=== PATIENT | female | born 1980 | race Caucasian/White ===

== ENCOUNTER → 2022-10-14 09:56 | Outpatient (BNVA) | payer OTHER, SELFPAY | PROVIDERS: PCP Internal Medicine; Visit Provider Nurse Practitioner Family ==

== ENCOUNTER → 2022-10-18 15:04 | Outpatient (BNVA) | payer OTHER, SELFPAY | PROVIDERS: PCP Internal Medicine; Visit Provider Nurse Practitioner Family ==

== ENCOUNTER 2023-02-18 07:56 | Outpatient (AMB) | payer OTHER, SELFPAY ==
--- NOTE | 2023-02-18 07:59 | A.OFFVIS_ITS ---
Intake Vital Signs 02/18/23 08:00 Height 5 ft 3 in Weight 164 lb BMI 29.0 BP 118/72 Blood Pressure Location Rt brachial Position Sitting Pulse 95 Pulse Source Pulse Oximeter Pulse Oximetry (%) 99 Oxygen Delivery Method Room Air Intake Visit Reasons: 4m follow up MIGRAINE-lvm Intake Note: Patient presents for 4 donny follow up migraines. Patient states they're starting to get better. Allergies No Known Allergies Allergy (Verified 02/18/23 08:05) Medication List - Last Reconciled 02/18/23 by CHARY Mcdowell jihfevgrkt-abncddvkng-zto-cod [id number] mg 1 cap PO Q4H PRN 30 days galcanezumab-gnlm (Emgality Pen) 120 mg subcut ONCE 30 days magnesium oxide 400 mg PO BEDTIME 30 days riboflavin (vitamin B2) 400 mg PO DAILY 30 days rizatriptan 5 - 10 mg (0.5 - 1 x 10 mg) PO Q2H PRN 21 days HPI HPI Comments History of Present Illness Details 42-yr-old female presents for f/u visit. Pt denies any significant interval medical changes. Although she had an ER visit, for ? gallbladder attack, however now thinks it was just a severe case of heartburn/gastritis. She reports that she has had a decrease in her headache and migraine frequency and severity. In the past month, she has had 5 milder migraine days and 2 more TTH headache days. She does continue to have a menstrual migraine that starts at onset of menses. Ajovy was never started d/t insurance denial. Thus, pt was advised to start E mgality. Emgality has been helpful- tolerating overall well, sometimes may have some injection site soreness but not always. She did not tolerate Sumatripatn, thus was tried on Rizatriptan. The Rizatriptan was better tolerated but causes significant sleepiness so she can not take. She is using Fioricet for her menstrual migraines- which helps some [facility] Medical History (Updated 10/14/22 @ 11:31 by CHARY Mcdowell) Pure hypercholesterolemia Back pain Surgical History History of section Family History Mother Diabetes Sister History of thyroid disorder Goiter Maternal Grandmother Dementia Maternal Grandfather Diabetes Cancer Paternal Grandmother Alzheimer disease Social History Alcohol intake: current Alcohol intake frequency: holidays/special occasions only Patient Tobacco Use Status: Never used Tobacco Review of Systems Const All systems reviewed & are unremarkable except as noted in HPI and below Physical Exam Vital Signs: Last Vital Signs Pulse 95 02/18/23 08:00 BP 118/72 02/18/23 08:00 Pulse Ox 99 02/18/23 08:00 Oxygen Delivery Method Room Air 02/18/23 08:00 BMI result Body Mass Index 29.0 Const General: cooperative and no acute distress Orientation/consciousness: patient oriented x3 HEENT Head: Yes normocephalic Resp Effort & Inspection: normal respiratory effort and able to speak in complete sentences Neuro General: patient oriented x3, gait normal and CN's II-XI intact bilaterally Cognition (Neuro): normal cognition Motor exam (neuro): 5/5 motor strength present throughout Psych Appearance: grossly normal Mental Status: mental status grossly normal Speech and movement: Normal speech and movement present Affect: normal affect Attitude: cooperative Thought process: Normal thought process present Thought content: Normal thought content present Insight: Good insight present (Psych) Judgement: Good judgement present (Psych) Assessment & Plan Assessment & Plan (1) Migraine with aura: Code(s): G43.109 - Migraine with aura, not intractable, without status migrainosus (2) Menstrually related migraine: Code(s): G43.829 - Menstrual migraine, not intractable, without status migrainosus (3) Constipation: Code(s): K59.00 - Constipation, unspecified Plan For overall headache management: Track headaches, especially after any treatment regimen changes. ? For acute headache treatment: Stop Sumatriptin and Rizatriptan. Trial Nurtex ODT 75mg qd prn (do not take within 5 days of taking Fioricet). May adjunct w/ OTC Naproxen/Ibuprofen. May use Fioricet prn- reviewed risk for medication adaptation headache development w/ use > 4-5 times per month. Previous acute migraine medication trials: Sumatriptan 100mg- not tolerated. Rizatriptan- not tolerated. Acute migraine medication contraindications: None at this time ? For menstrual migraine: Try taking Ibuprofen or Naproxen w/ Nurtec starting 1-2 days before onset of menses. ? For headache prevention medication: Riboflavin 400mg qam Magnesium 400mg qhs Continue Emgality 120mg sc q month- as pt is having good effect. Previous migraine prevention medication trials: Topiramate- anorexia, back pain, facial/hands/tingling. Amitriptyline 10mg- ineffective- would not increase further d/t risk for worsening constipation. Propranolol- caused nausea. Migraine prevention medication contraindications: Aimovig- d/t chronic constipation. ? Pt to follow-up in 6 months or sooner prn. Medications: New rimegepant (Nurtec ODT) Max daily dose 75 mg PO ONCE 30 days PRN 16 tabs 3RF migraine headache Coding Level of Care Code Est Pt Level 4 (07019) Diagnoses Migraine with aura G43.109 Menstrually related migraine G43.829 Constipation K59.00
[2023-02-18 08:00] VITALS: BP 118/72; PULSE 95; O2SAT 99; BMI 29.0
== END 2023-02-18 08:39 | disposition home or self-care (01) ==
PROVIDERS: PCP Internal Medicine; Visit Provider Nurse Practitioner Family
DX: G43.109 Migraine with aura, not intractable, without status migrainosus (principal); G43.829 Menstrual migraine, not intractable, without status migrainosus; K59.00 Constipation, unspecified
CPT/HCPCS: 99214

== ENCOUNTER → 2023-02-18 07:56 | Outpatient (BNVA) | payer OTHER, SELFPAY | PROVIDERS: PCP Internal Medicine; Visit Provider Nurse Practitioner Family ==

== ENCOUNTER 2023-08-29 08:11 | Outpatient (AMB) | payer OTHER, SELFPAY ==
--- NOTE | 2023-08-29 08:12 | MHC.OFFVIS ---
Vital Signs 08/29/23 08:17 Height 5 ft 3 in Weight 170 lb BMI 30.1 BP 115/62 Blood Pressure Location Lt brachial Position Sitting Pulse 92 Pulse Source Pulse Oximeter Pulse Oximetry (%) 96 Oxygen Delivery Method Room Air Intake Visit Reasons: 6M follow up-LVM Intake Note: Patient presents for 6 months f/u. Still having migraines and would like to up the doses on Emgality. Would like to try another preventive med. Allergies No Known Allergies Allergy (Verified 08/29/23 08:16) HPI Comments Details: 42-yr-old female presents for f/u visit. Pt denies any significant interval medical changes. Pt reports her migraine attacks are occurring anywhere form 5-10 days per month on Emgality. She has end of cycle wearing off, and when this coincides w/ menses, she has more severe attacks. Has had to leave work d/t severe attack a/w increased nausea. Wonders if we can increase the Emgality dose or frequency. She tried the Rizatriptan, Zolmitriptan, and Naratriptan- all caused sleepiness, so she cannot take at work. Fioricet helps some for menstrual migraine. Baseline headache characteristics: Aura: Left eye kaleidoscope x's a few minutes- at times. Mild to Severe headache in the curve of the left eyebrow, feels like eye pressure. A/w Photophobia, phonophobia, nausea at times, vomiting- once, not right in space dizziness, word recall, fatigue. Can be prone to scalp sensitivity- not always w/ migraine. [facility] Medical History (Updated 10/14/22 @ 11:31 by CHARY Mcdowell) Pure hypercholesterolemia Back pain Surgical History History of section Family History Mother Diabetes Sister History of thyroid disorder Goiter Maternal Grandmother Dementia Maternal Grandfather Diabetes Cancer Paternal Grandmother Alzheimer disease Social History Alcohol intake: current Alcohol intake frequency: holidays/special occasions only Patient Tobacco Use Status: Never used Tobacco Physical Exam Vital Signs: Last Vital Signs Pulse 92 08/29/23 08:17 BP 115/62 05/03/24 08:17 Pulse Ox 96 08/29/23 08:17 Oxygen Delivery Method Room Air 08/29/23 08:17 BMI result Body Mass Index 30.1 Const General: cooperative and no acute distress Orientation/consciousness: patient oriented x3 Resp Effort & Inspection: normal respiratory effort and able to speak in complete sentences Neuro General: patient oriented x3 Cranial nerves: Yes CN's II-XII intact bilaterally Cognition (Neuro): normal cognition Psych Appearance: grossly normal Mental Status: mental status grossly normal Speech and movement: Normal speech and movement present Affect: normal affect Attitude: cooperative Assessment & Plan Assessment & Plan (1) Migraine with aura: Code(s): G43.109 - Migraine with aura, not intractable, without status migrainosus Category: Medical (2) Menstrually related migraine: Code(s): G43.829 - Menstrual migraine, not intractable, without status migrainosus Category: Medical (3) Constipation: Code(s): K59.00 - Constipation, unspecified Category: Medical Plan For overall headache management: Track headaches, especially after any treatment regimen changes. ? For acute headache treatment: Trial Diclofenac powder 50mg qd prn. Trial Eletriptan 40mg prn. Stop Nurtex ODT 75mg qd prn- insurance denied. May use Fioricet prn- reviewed risk for medication adaptation headache development w/ use > 4-5 times per month. Previous acute migraine medication trials: Sumatriptan 100mg- not tolerated. Rizatriptan- not tolerated. Zolmitriptan- caused sleepiness. Naratriptan- caused sleepiness Acute migraine medication contraindications: None at this time ? For menstrual migraine: Try taking Ibuprofen or Naproxen w/ Nurtec starting 1-2 days before onset of menses. ? For headache prevention medication: Riboflavin 400mg qam Magnesium 400mg qhs Stop Emgality- losing effectiveness. Trial Ajovy 225mg sc q month- if effective can switch to 675mg sc q 3 months to minimize end of cycle wearing off coinciding w/ menses. Previous migraine prevention medication trials: Topiramate- anorexia, back pain, facial/hands/tingling. Amitriptyline 10mg- ineffective- would not increase further d/t risk for worsening constipation. Propranolol- caused nausea. Migraine prevention medication contraindications: Aimovig- d/t chronic constipation. ? Pt to follow-up in 6 months or sooner prn. Medications: New diclofenac potassium (Cambia) must be taken on empty stomach with water only 50 mg PO DAILY PRN 9 ea 6RF migraine headache 30 days ondansetron 4 mg PO Q6H PRN 20 tabs 3RF nausea and vomiting 30 days eletriptan take 1 tab at onset of headache; if no relief, may repeat 1 tab after at least 2 hrs; max = 2 tabs/24 hrs orally PRN; 12 tabs 6RF migraine headache 30 days fremanezumab-vfrm (Ajovy) administer as 3 consecutive 225 mg injections 675 mg (4.5 mL) subcut [id number] 4.5 mL 3RF 90 days Discontinued rizatriptan max 2 tabs per day or 4 tabs per week Discontinued Reason: Doctor's Order 5 - 10 mg (0.5 - 1 x 10 mg) PO Q2H 21 days PRN 12 tabs 3RF migraine headache rimegepant Max daily dose Discontinued Reason: Insurance Denied 75 mg PO ONCE 30 days PRN 16 tabs 3RF migraine headache galcanezumab-gnlm Discontinued Reason: Doctor's Order 120 mg subcut ONCE 30 days 1 mL 6RF G43.109 - Migraine with aura, not intractable, without status migrainosus naratriptan Discontinued Reason: Doctor's Order take 1/2 - 1 tab at onset of headache; if no relief may repeat 1 tab after at least 4 hrs; max = 2 tabs/24 hrs orally PRN; 30 days 12 tabs 3RF migraine headache zolmitriptan Discontinued Reason: Doctor's Order take 1 tab at onset of headache; if no relief, may repeat 1 tab after at least 2 hrs; max = 2 tabs/24 hrs orally PRN; 30 days 12 tabs 1RF migraine headache Coding Level of Care Code Est Pt Level 4 (64769) Diagnoses Migraine with aura G43.109 Menstrually related migraine G43.829 Constipation K59.00
[2023-08-29 08:17] VITALS: BP 115/62; PULSE 92; O2SAT 96; BMI 30.1
== END 2023-08-29 09:00 | disposition home or self-care (01) ==
PROVIDERS: PCP Internal Medicine; Visit Provider Nurse Practitioner Family
DX: G43.109 Migraine with aura, not intractable, without status migrainosus (principal); G43.829 Menstrual migraine, not intractable, without status migrainosus; K59.00 Constipation, unspecified
CPT/HCPCS: 99214

== ENCOUNTER → 2023-08-29 08:11 | Outpatient (BNVA) | payer OTHER, SELFPAY | PROVIDERS: PCP Internal Medicine; Visit Provider Nurse Practitioner Family ==

== ENCOUNTER 2024-05-14 08:24 | Outpatient (AMB) | payer OTHER, SELFPAY ==
[2024-05-14 08:27] VITALS: BP 116/82; BMI 29.9
--- NOTE | 2024-05-14 08:27 | A.OFFVIS_ITS ---
Vital Signs 05/14/24 08:27 Height 5 ft 3 in Weight 169 lb BMI 29.9 BP 116/82 Blood Pressure Location Rt brachial Position Sitting Intake Visit Reasons: 6 mon follow up Intake Note: Patient presents for follow u Allergies No Known Allergies Allergy (Verified 05/14/24 08:32) Medication List - Last Reconciled 05/14/24 by Estrella Prince, CHARY pkybredicw-pfsbrdsumw-vvs-cod [id number] mg 1 cap PO Q4H PRN 30 days diclofenac potassium 50 mg PO BID PRN 30 days eletriptan take 1 tab at onset of headache; if no relief, may repeat 1 tab after at least 2 hrs; max = 2 tabs/24 hrs orally PRN; 30 days fremanezumab-vfrm (Ajovy) 675 mg (4.5 mL) subcut [id number] 90 days magnesium oxide 400 mg PO BEDTIME 30 days norethindrone-e.estradiol-iron 1 mg-20 mcg (21)/75 mg (7) (Blisovi Fe / (28)) 1 tab PO DAILY ondansetron 4 mg PO Q6H PRN 30 days riboflavin (vitamin B2) 400 mg PO DAILY 30 days HPI Comments Details: 43-yr-old female presents for f/u visit for migraine. Pt denies any significant interval medical changes. Pt states she is feeling excellent since starting Ajovy and a OCP.. Pt reports prior to starting Ajovy, she was having 27 migraine days per month and needing to miss work due to severity of attacks. Since starting Ajovy, she has had 2-3 mild tension like frontal headaches per month. She is rarely having a migraine aura. She does note, that initially after starting Ajovy, her insurance denied the Ajovy renewal request, and so she was off the Ajovy for approximately 2 months, and she did notice a slight uptake in headaches during that period. However, after restarting Ajovy, the headaches subsided significantly again. Diclofenac powder was denied by her insurance, thus order was changed to diclofenac 50 mg tab. She states the diclofenac tab works very well, and does not cause a rebound type headache. The eletriptan is also very effective, and much better tolerated. She states maybe once out of every 6 time she uses it it may cause sleepiness, and she is okay with that. Fioricet helps some for menstrual migraine. Baseline headache characteristics: Aura: Left eye kaleidoscope x's a few minutes- at times. Mild to Severe headache in the curve of the left eyebrow, feels like eye pressure. A/w Photophobia, phonophobia, nausea at times, vomiting- once, not right in space dizziness, word recall, fatigue. Can be prone to scalp sensitivity- not always w/ migraine. PFSH Medical History Pure hypercholesterolemia Back pain Surgical History History of section Family History Mother Diabetes Sister History of thyroid disorder Goiter Maternal Grandmother Dementia Maternal Grandfather Diabetes Cancer Paternal Grandmother Alzheimer disease Social History Alcohol intake: current Alcohol intake frequency: holidays/special occasions only Patient Tobacco Use Status: Never used Tobacco Physical Exam Vital Signs: Last Vital Signs BP 116/82 05/14/24 08:27 BMI result Body Mass Index 29.9 Const General: cooperative and no acute distress Orientation/consciousness: patient oriented x3 Resp Effort & Inspection: normal respiratory effort and able to speak in complete sentences Neuro General: patient oriented x3 Cranial nerves: Yes CN's II-XII intact bilaterally Cognition (Neuro): normal cognition Psych Appearance: grossly normal Mental Status: mental status grossly normal Speech and movement: Normal speech and movement present Affect: normal affect Attitude: cooperative Assessment & Plan Assessment & Plan (1) Migraine with aura: Code(s): G43.109 - Migraine with aura, not intractable, without status migrainosus Category: Medical (2) Menstrually related migraine: Code(s): G43.829 - Menstrual migraine, not intractable, without status migrainosus Category: Medical Plan For overall headache management: Track headaches, especially after any treatment regimen changes. ? For acute headache treatment: Continue Diclofenac 50mg tablet b.i.d. prn. Continue Eletriptan 40mg prn. May use Fioricet prn- reviewed risk for medication adaptation headache development w/ use > 4-5 times per month. Previous acute migraine medication trials: Sumatriptan 100mg- not tolerated. Rizatriptan- not tolerated. Zolmitriptan- caused sleepiness. Naratriptan- caused sleepiness Acute migraine medication contraindications: None at this time ? For menstrual migraine: May use diclofenac 50 mg b.i.d. p.r.n. 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 We did discuss risks and benefits related to using low dose estrogen OCP in females with migraine with aura in relation to increased stroke risk. Patient does not smoke. BP is normotensive. Patient has no known other modifiable or non modifiable stroke risk factors. Patient verbalizes understanding, and with mutual shared decision-making, is comfortable continuing on her OCP tx. ? For headache prevention medication: Continue Riboflavin 400mg qam Continue Magnesium 400mg qhs Continue Ajovy 225mg sc q month, as patient has had greater than 75% reduction in monthly migraine days as well as marked reduction in severity and burden of migraine attacks. Previous migraine prevention medication trials: Topiramate- anorexia, back pain, facial/hands/tingling. Amitriptyline 10mg- ineffective- would not increase further d/t risk for worsening constipation. Propranolol- caused nausea. Emgality- losing effectiveness. Migraine prevention medication contraindications: Aimovig- d/t chronic constipation. ? Pt to follow-up in 6 months or sooner prn. Medications: Refilled eletriptan take 1 tab at onset of headache; if no relief, may repeat 1 tab after at least 2 hrs; max = 2 tabs/24 hrs orally PRN; 30 days 12 tabs 6RF migraine headache fremanezumab-vfrm (Ajovy) administer as 3 consecutive 225 mg injections 675 mg (4.5 mL) subcut [id number] 90 days 4.5 mL 3RF riboflavin (vitamin B2) 400 mg PO DAILY 30 days 30 tabs 6RF magnesium oxide may hold for loose stools 400 mg PO BEDTIME 30 days 30 tabs 6RF Coding Level of Care Code Est Pt Level 4 (21925) Diagnoses Migraine with aura G43.109 Menstrually related migraine G43.829
== END 2024-05-14 09:03 | disposition home or self-care (01) ==
PROVIDERS: PCP Internal Medicine; Visit Provider Nurse Practitioner Family
DX: G43.109 Migraine with aura, not intractable, without status migrainosus (principal); G43.829 Menstrual migraine, not intractable, without status migrainosus
CPT/HCPCS: 99214

== ENCOUNTER → 2024-05-14 08:24 | Outpatient (BNVA) | payer OTHER, SELFPAY | PROVIDERS: PCP Internal Medicine; Visit Provider Nurse Practitioner Family ==

== ENCOUNTER 2024-11-11 10:03 | Outpatient (AMB) | payer OTHER, SELFPAY ==
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
[2024-11-11 10:12] VITALS: BP 110/72; PULSE 71; O2SAT 99; BMI 29.2
== END 2024-11-11 10:54 | disposition home or self-care (01) ==
LOC: HO.HSMS 10:03
PROVIDERS: PCP Internal Medicine; Visit Provider Nurse Practitioner Family
DX: G43.109 Migraine with aura, not intractable, without status migrainosus (principal); G43.829 Menstrual migraine, not intractable, without status migrainosus
CPT/HCPCS: 99214